=== PATIENT | female | born 1990 | race African-American/Black ===

== ENCOUNTER 2016-08-06 19:53 | Emergency (ER) | payer SELFPAY ==
[~2016-08-06] VITALS: Ht 162.6 cm; Wt 74.8 kg
[2016-08-06 20:00] VITALS: BP 97/66
[2016-08-06] MEDS ORDERED: ONDANSETRON HCL 4 MG/2 ML VIAL IM ONE (20:45)
[2016-08-06] MEDS ORDERED: HYDROmorphone HCL 2 MG/ML VL IM ONE (20:45)
[2016-08-06 21:12] LABS: Urine Bilirubin Negative (Negative); Urine Blood Negative /uL (Negative); Urine Color Yellow (Yellow); Urine Glucose Normal (Normal); Urine Ketone Negative (Negative); Urine Mucus FEW (None Seen); Urine Nitrite Negative (Negative); Urine RBC <1 /hpf (0 - 4); Urine Squamous Epithelial Cell MOD /hpf (<5); Urine Urobilinogen Normal (Negative)
== END 2016-08-06 23:48 | disposition home or self-care (01) ==
LOC: ER 19:59
DX: M54.16 Radiculopathy, lumbar region (principal); M79.1 Myalgia; Z88.6 Allergy status to analgesic agent
CPT/HCPCS: 81001; 81025; 96372; 99284; J1170; J2405

== ENCOUNTER 2017-02-16 09:04 | Emergency (ER) | payer MEDICAID ==
[~2017-02-16] VITALS: Ht 162.6 cm; Wt 72.6 kg
[2017-02-16 09:23] VITALS: BP 107/65
[2017-02-16] MEDS ORDERED: KETOROLAC TROMETH 60MG/2ML VIAL IM ONE (09:45)
== END 2017-02-16 10:10 | disposition home or self-care (01) ==
LOC: ER 09:04
DX: M54.41 Lumbago with sciatica, right side (principal); Z88.6 Allergy status to analgesic agent; X50.9XXA Other and unspecified overexertion or strenuous movements or postures, initial encounter; Y93.89 Activity, other specified; Y92.89 Other specified places as the place of occurrence of the external cause; Y99.8 Other external cause status
CPT/HCPCS: 96372; 99283; J1885